=== PATIENT | male | born 1955 | race Caucasian/White ===

== ENCOUNTER 2017-02-24 12:36 | Emergency (ER) | payer OTHER, MEDICARE ==
[~2017-02-24] VITALS: Ht 182.9 cm; Wt 77.8 kg
[~2017-02-24 12:36] MED LIST: DEXEDRINE, DEXT10 MG PO; K-PHOS ORIGINA500 M1 PO; TRUVADA1 TABLET PO; VIRAMUNE200 MG PO
[2017-02-24] MEDS ORDERED: KEFLEX500 MG PO (14:15)
[2017-02-24 14:35] VITALS: BP 160/98
== END 2017-02-24 14:40 | disposition home or self-care (01) ==
LOC: EME 12:36
PROC: 0HDRXZZ Extraction of Toe Nail, External Approach (ICD-10-PCS; principal; 2017-02-24)
DX: S91.201A Unspecified open wound of right great toe with damage to nail, initial encounter (principal); W22.8XXA Striking against or struck by other objects, initial encounter; Y93.E3 Activity, vacuuming; Z21 Asymptomatic human immunodeficiency virus [HIV] infection status; Z88.0 Allergy status to penicillin
CPT/HCPCS: 99281; 99283

== ENCOUNTER 2017-08-25 10:00 | Emergency (ER) | payer OTHER, MEDICARE ==
[~2017-08-25] VITALS: Ht 182.9 cm; Wt 80.1 kg
[~2017-08-25 10:00] MED LIST changes: +KEFLEX500 MG PO
[2017-08-25] MEDS ORDERED: MOTRIN600 MG PO (11:36)
[2017-08-25] MEDS ORDERED: FLEXERIL10 MG PO (11:37)
[2017-08-25 12:33] VITALS: BP 143/103
== END 2017-08-25 12:39 | disposition home or self-care (01) ==
LOC: EME 10:00
DX: S39.012A Strain of muscle, fascia and tendon of lower back, initial encounter (principal); X50.0XXA Overexertion from strenuous movement or load, initial encounter; Y93.E6 Activity, residential relocation; G89.29 Other chronic pain; Z21 Asymptomatic human immunodeficiency virus [HIV] infection status; Z88.0 Allergy status to penicillin
CPT/HCPCS: 99281; 99284